=== PATIENT | male | born 1980 | race Caucasian/White ===

== ENCOUNTER 2021-07-21 15:27 | Emergency (ER) | payer OTHER ==
[~2021-07-21] VITALS: Ht 172.7 cm; Wt 76.7 kg
== END 2021-07-21 18:30 | disposition home or self-care (01) ==
LOC: ER 15:27
DX: V89.2XXA Person injured in unspecified motor-vehicle accident, traffic, initial encounter (principal); Y92.488 Other paved roadways as the place of occurrence of the external cause